=== PATIENT | female | born 1975 | race Caucasian/White ===

== ENCOUNTER 2023-01-23 05:34 | Inpatient (IN) | payer BC ==
[2023-01-23] MEDS ORDERED: metroNIDAZOLE/Normal Saline 500 MG in Premix Bag 1 BAG IV ONE (06:30)
[2023-01-23] MEDS ORDERED: cefTRIAXone 2 GM in Sodium Chloride 0.9% 50 ML IV ONE (06:30)
[2023-01-23] MEDS ORDERED: Gabapentin 300 MG Cap PO ONE (06:30)
[2023-01-23] MEDS ORDERED: Acetaminophen 500 MG Tab PO ONE (06:30)
[2023-01-23] MEDS ORDERED: Enoxaparin 40 MG/0.4 ML Syringe SUBCUT ONE (06:30)
[2023-01-23] MEDS ORDERED: Scopolamine 1.5 MG Transdermal Patch TOP ONE (06:30)
[2023-01-23] MEDS ORDERED: Bupivacaine 0.5%/EPINEPHrine 1:200,000 50 ML MDV ONE (06:50)
[2023-01-23] MEDS ORDERED: Succinylcholine 200 MG/10 ML MDV ONE (07:16)
[2023-01-23] MEDS ORDERED: Propofol 200 MG/20 ML SDV ONE (07:16)
[2023-01-23] MEDS ORDERED: Neostigmine Methylsulfate 1 MG/ML 5 ML Syringe ONE (07:16)
[2023-01-23] MEDS ORDERED: Rocuronium 50 MG/5 ML Vial ONE ×2 (07:16→09:01)
[2023-01-23] MEDS ORDERED: Ondansetron 4 MG/2 ML SDV ONE (07:16)
[2023-01-23] MEDS ORDERED: fentaNYL 250 MCG/5 ML SDV ONE ×2 (07:16→08:16)
[2023-01-23] MEDS ORDERED: Glycopyrrolate 0.2 MG/ML 5 ML MDV ONE (07:16)
[2023-01-23] MEDS ORDERED: Dexamethasone 4 MG/ML SDV ONE (07:16)
[2023-01-23] MEDS: Sodium Chloride 0.9% 1,000 ML IV SCH ×3 (07:31→23:47)
[2023-01-23] MEDS ORDERED: Ketamine 500 MG/5 ML MDV IV SCH (07:45)
[2023-01-23] MEDS ORDERED: Indocyanine Green 25 MG SDV ONE (07:59)
[2023-01-23] MEDS ORDERED: Lactated Ringers 1,000 ML ONE (09:18)
[2023-01-23] MEDS: Ondansetron 4 MG/2 ML SDV IVPUSH PRN (11:44)
[2023-01-23] MEDS: Acetaminophen 1,000 MG in Premix Bag 1 BAG IV SCH ×2 (13:26→20:54)
[2023-01-23] MEDS: rOPINIRole 1 MG Tab PO SCH ×2 (13:28→20:54)
[2023-01-23] MEDS: Melatonin 3 MG Tab PO SCH (20:54)
[2023-01-23] MEDS: Enoxaparin 40 MG/0.4 ML Syringe SUBCUT SCH (23:47)
[2023-01-24] MEDS: Acetaminophen 1,000 MG in Premix Bag 1 BAG IV SCH ×3 (01:38→14:19)
[2023-01-24 04:15] LABS: HEMATOCRIT 35.5 % (34.3-46.0); HEMOGLOBIN 11.9 g/dL (11.2-15.5); MEAN CORPUSCULAR HEMOGLOBIN 32.1 pg (31.6-35.5); MEAN CORPUSCULAR HGB CONC 33.5 g/dL (31.6-35.5); MEAN CORPUSCULAR VOLUME 95.7 fL (81.4-99.0); RED BLOOD CELL COUNT 3.71 M/uL (3.77-5.24); WHITE BLOOD CELL COUNT,WBC 15.9 K/uL (3.2-11.0)
[2023-01-24 04:53] LABS: PHOSPHORUS 3.3 mg/dL (2.5-4.9)
[2023-01-24 04:54] LABS: A/G RATIO 0.8 (1.2-2.2); ALANINE AMINOTRANSFERASE,ALT 79 U/L (12-78); ALBUMIN 2.9 g/dL (3.4-5.0); ALKALINE PHOSPHATASE 68 U/L (46-116); ASPARTATE AMNIOTRANSFERASE,AST 76 U/L (15-37); BILIRUBIN TOTAL 0.4 mg/dL (0.2-1.0); BLOOD UREA NITROGEN,BUN 9 mg/dL (7-18); CALCIUM 8.1 mg/dL (8.5-10.1); CARBON DIOXIDE,CO2 27 mmol/L (21-32); CHLORIDE,CL 105 mmol/L (100-108); CREATININE 0.9 mg/dL (0.6-1.0); EST CRCL DRUG DOSING (CG) 68.66 mL/min; ESTIMATED GFR 80 mL/min (>60); GLUCOSE RANDOM 138 mg/dL (74-106); POTASSIUM,K 4.3 mmol/L (3.6-5.2); PROTEIN TOTAL,TP 6.5 g/dL (6.4-8.2); SODIUM,NA 139 mmol/L (140-148)
[2023-01-24 05:09] LABS: ANION GAP 11.3 mmol/L (5.0-14.0)
[2023-01-24] MEDS: Pantoprazole 40 MG Vial IVPUSH SCH (08:05)
[2023-01-24] MEDS: Sodium Chloride 0.9% 1,000 ML IV SCH ×3 (08:05→21:29)
[2023-01-24] MEDS: REXULTI 1 MG PO SCH (08:08)
[2023-01-24] MEDS: Loratadine 10 MG Tab PO SCH (08:08)
[2023-01-24] MEDS: rOPINIRole 1 MG Tab PO SCH ×5 (08:09→20:36)
[2023-01-24] MEDS ORDERED: BREXPIPRAZOLE 1 MG PO SCH (09:00)
[2023-01-24] MEDS: Enoxaparin 40 MG/0.4 ML Syringe SUBCUT SCH ×3 (11:15→22:38)
[2023-01-24] MEDS ORDERED: Ketorolac 15 MG/ML SDV IVPUSH PRN (14:50)
[2023-01-24] MEDS: Ondansetron 4 MG/2 ML SDV IVPUSH PRN (20:21)
[2023-01-24] MEDS: Melatonin 3 MG Tab PO SCH (20:40)
[2023-01-24] MEDS: Acetaminophen Soln 160 MG/5 ML UD Cup PO SCH (21:28)
[2023-01-25] MEDS: Acetaminophen Soln 160 MG/5 ML UD Cup PO SCH ×2 (03:30→10:07)
[2023-01-25 04:25] LABS: HEMATOCRIT 32.9 % (34.3-46.0); MEAN CORPUSCULAR HEMOGLOBIN 32.3 pg (31.6-35.5); MEAN CORPUSCULAR HGB CONC 33.4 g/dL (31.6-35.5); MEAN CORPUSCULAR VOLUME 96.5 fL (81.4-99.0); RED BLOOD CELL COUNT 3.41 M/uL (3.77-5.24); WHITE BLOOD CELL COUNT,WBC 12.4 K/uL (3.2-11.0)
[2023-01-25 04:49] LABS: CALCIUM 7.7 mg/dL (8.5-10.1); CREATININE 0.8 mg/dL (0.6-1.0); EST CRCL DRUG DOSING (CG) 77.24 mL/min; POTASSIUM,K 3.7 mmol/L (3.6-5.2)
[2023-01-25 05:04] LABS: ANION GAP 11.7 mmol/L (5.0-14.0)
[2023-01-25] MEDS: Loratadine 10 MG Tab PO SCH (08:17)
[2023-01-25] MEDS: REXULTI 1 MG PO SCH (08:17)
[2023-01-25] MEDS: rOPINIRole 1 MG Tab PO SCH (08:18)
[2023-01-25] MEDS: Pantoprazole 40 MG Vial IVPUSH SCH (08:19)
== END 2023-01-25 10:30 | disposition home or self-care (01) | DRG 403 ==
LOC: JP.MS 05:53
PROVIDERS: ADMIT Student in an Organized Health Care Education/Training Program; ATTEND Student in an Organized Health Care Education/Training Program
PROC: 0DB64Z3 Excision of Stomach, Percutaneous Endoscopic Approach, Vertical (ICD-10-PCS; principal; 2023-01-23)
PROC: 8E0W4CZ Robotic Assisted Procedure of Trunk Region, Percutaneous Endoscopic Approach (ICD-10-PCS; 2023-01-23)
PROC: 0D9670Z Drainage of Stomach with Drainage Device, Via Natural or Artificial Opening (ICD-10-PCS; 2023-01-23)
DX: E66.01 Morbid (severe) obesity due to excess calories (principal); G47.33 Obstructive sleep apnea (adult) (pediatric); K21.9 Gastro-esophageal reflux disease without esophagitis; F41.0 Panic disorder [episodic paroxysmal anxiety]; F31.81 Bipolar II disorder; Z90.49 Acquired absence of other specified parts of digestive tract; Z98.890 Other specified postprocedural states; Z98.51 Tubal ligation status; Z79.899 Other long term (current) drug therapy; Z87.891 Personal history of nicotine dependence
CPT/HCPCS: 36415; 80048; 80053; 82947; 83735; 84100; 85027; 86850; 86900; 86901; A9270-GY; C9113; J0131; J0171; J0330; J0696; J1100; J1650; J2405; J2704; J2710; J2795; J3010; J3490; J7030; J7120